=== PATIENT | female | born 1995 | race Caucasian/White ===

== ENCOUNTER → 2023-02-13 11:33 | Outpatient (CLI) | payer OTHER, SELFPAY ==
[2023-02-13 17:13] LABS: Urine N gonorrhoeae NOT DETECTED
[2023-02-13 17:33] LABS: Urine Chlamydia NOT DETECTED
== END ==
PROVIDERS: Visit Provider Nurse Practitioner Family
DX: N89.8 Other specified noninflammatory disorders of vagina (principal)
CPT/HCPCS: 87086; 87210; 87491; 87591

== ENCOUNTER → 2023-04-06 17:09 | Outpatient (CLI) | payer OTHER, SELFPAY | PROVIDERS: Visit Provider Nurse Practitioner Adult Health | DX: B37.31 Acute candidiasis of vulva and vagina (principal) | CPT/HCPCS: 87491; 87591; 87661; 87798; 87801 ==